=== PATIENT | female | born 2000 | race Caucasian/White ===

== ENCOUNTER 2023-08-05 19:09 | Emergency (ER) | payer BC, SELFPAY ==
[2023-08-05 19:14] VITALS: BP 124/74
[2023-08-05 19:43] LABS: % Basophils 0.9 % (0-2); % Eosinophils 3.6 % (0-6); % Immature Granulocytes 0.2 % (0-0.5); % Lymphocytes 26.1 % (20.5-51.1); % Monocytes 5.2 % (1.7-9.3); Absolute Basophils 0.1 10^3/uL (0-0.2); Absolute Eosinophils 0.2 10^3/uL (0-0.7); Absolute Lymphocytes 1.7 10^3/uL (1.2-3.4); Absolute Monocytes 0.3 10^3/uL (0.1-0.6); Absolute Neutrophils 4.1 10^3/uL (1.4-6.5); Hematocrit 41.9 % (37.0-47.0); Mean Corp Hgb Conc. 35.8 g/dL (33.0-37.0); Mean Corpuscular Hgb 31.6 pg (27.0-31.0); Mean Corpuscular Volume 88.4 fL (81.0-99.0); Mean Platelet Volume 9.6 fL (7.4-10.4); Nucleated Red Blood Cells % 0 %; Platelet Count 316 10^3/uL (130-400); Red Blood Cell Count 4.74 10^6/uL (4.20-5.40); Red Cell Dist. Width 12.1 % (11.5-14.5); White Blood Cell Count 6.4 10^3/uL (4.8-10.8)
[2023-08-05 19:52] LABS: HCG, Serum Qualitative Screen Negative
[2023-08-05 19:58] LABS: ALT (SGPT) 17 U/L (0-35); AST (SGOT) 22 U/L (14-36); Albumin 4.1 g/dl (3.5-5.0); Alkaline Phosphatase 62 U/L (38-126); Blood Urea Nitrogen 10 mg/dl (7-17); Calcium 9.3 mg/dl (8.4-10.2); Carbon Dioxide 22 mmol/L (22-30); Chloride 103 mmol/L (98-107); Glucose 91 mg/dl (70-99); Lipase 57 U/L (23-300); Sodium 137 mmol/L (135-145); Total Bilirubin 0.6 mg/dl (0.2-1.3); eGFR > 60.00
[2023-08-05 23:30] VITALS: BP 134/88; BMI 19.9
--- NOTE | 2023-08-05 23:43 | ED.GENMED ---
History of Present Illness
General
Chief Complaint: Abdominal Pain
Source: patient
Time Seen by Provider: 08/05/23 23:19
Travel History
Have you had any contact with someone who has COVID-19?: No
Do you have any symptoms of coronavirus? Fever > 100 degrees, chills, cough, shortness of breath, sore throat, loss of taste or smell, muscle aches, or headache?: No
History of Present Illness
History of Present Illness:
22-year-old female presents to the emergency room complaining of abdominal pain. Pain is located in the left upper abdomen. Pain woke her from sleep this morning and has been persistent through the day. Patient denies any dysuria, frequency,
urgency. She denies any vaginal discharge. She denies any diarrhea or constipation. Patient did not take any nvcc-gap-snweqab medications for the pain. She denies vomiting but is nauseous.
Past History
Past History
ED Past Medical History: None
ED Past Surgical History: None
Social History
Tobacco: Non-smoker
Alcohol: None
Drug: None
Personal: Single
Living: with family
Employment: Employed
Family History
Family History: Other (Noncontributory)
Phy Exam
Physical Exam
Physical Exam:
General: Awake, Alert, Oriented X3. No acute distress.
Vitals: unremarkable
Head: Atraumatic
Eyes: Pupils equal, EOMI
Throat: Airway intact, no exudates
Neck: Trachea midline
Lungs: Clear and equal b/l
Heart: Regular rate, no murmurs
Abd: Soft, tenderness left upper quadrant, No pulsatile mass
Back: No CVA tenderness to percussion
Neuro: Nonfocal
Skin: Warm, dry, no rash
Extremities: pulses equal b/l, no edema
Course
Orders/Labs/Results
Orders:
Orders
08/05/23 19:26
Complete Blood Count/With Diff Urgent
Comprehensive Metabolic Panel Urgent
HCG, Serum Qualitative Screen Urgent
Comment: ADD ON
Lipase Urgent
08/05/23 19:31
Add On- LAB Urgent
Tests Added?: lipase, hcg qual.
08/05/23 23:41
Urinalysis Reflex To Culture Urgent
Date Specimen was Collected: 08/05/23
Time Specimen was Collected: 23:45
0.9% Sodium Chloride 1000 ml [Nss] 1,000 ml IV BOLUS
Ketorolac [Toradol] 15 mg IV NOW STA
08/06/23 01:12
CT Abd/pel W Iv And Oral Contr Urgent
Comment:
Reason For Exam: left upper pain
Famotidine [Pepcid] 20 mg IV NOW STA
Iohexol [Omnipaque] See Protocol PO NOW STA
Abnormal Lab Results
08/05/23
19:26
MCH 31.6 H pg
(27.0-31.0)
08/05/23 19:26
08/05/23 19:26
Vital Signs
Initial and Last Documented VS:
Initial Vital Signs
Temp Pulse Resp BP Pulse Ox
98.3 F 70 18 124/74 99
08/05/23 19:14 08/05/23 19:14 08/05/23 19:14 08/05/23 19:14 08/05/23 19:14
Last Documented Vital Signs
Temp Pulse Resp BP Pulse Ox
98.3 F 70 18 111/76 97
08/05/23 19:14 08/05/23 19:14 08/05/23 19:14 08/06/23 03:24 08/06/23 03:45
MDM/Problems Addressed
Differential Diagnosis Includes:
gastritis, kidney stone, pyelo, ibs
MDM/Problems Addressed:
Patient presents with left upper quadrant abdominal pain. She has a reassuring abdominal exam. Labs are reassuring. CT with p.o. and IV contrast obtained which shows no clear evidence for the cause of her pain. However her exam is benign and her
labs are reassuring so there is no indication for hospitalization. Patient will follow-up with GI as an outpatient. Recommend vfjl-qyb-ntmlint proton pump inhibitor for now as the most likely diagnosis is gastritis.
*Radiology
Radiology exam reviewed: other ([facility] report)
*Pulse Oximetry
Patient hypoxic: no
*Critical Care Note
Total Time (30-74mins, 75-104mins- exclusive of procedures): Not Applicable
Patient Management
Social determinants of health affecting care: Strong social support
ED Attending Note
-
Portions of this chart may have been created with voice recognition software.� Occasional wrong word or��sound alike� substitutions may have occurred due to the inherent limitations of voice recognition software.
Discharge Plan
Departure
Patient Disposition: Home (Routine Discharge)
Date of Disposition: 08/06/23
Time of Disposition: 04:28
Patient with high blood pressure during this ER visit?: No
Condition: Good
Discharge Problem:
Abdominal pain
Instructions: Abdominal Pain
Prescriptions:
No Action
Control
1 tab PO DAILY
cetirizine [Zyrtec] 10 mg Tablet
10 mg PO DAILY
Referrals:
Sabrina Crowley CRNP [Family Provider] -
Activity Restrictions/Additional Instructions:
CT of abd is normal. Your labs are normal. Pain could be due to irritation of your stomach. I would recommend taking Prilosec OTC for one month.
Interventions
Interventions:
*Risk Screen - Suicide Last Done: 08/05/23 19:14
*General Assessment Last Done: 08/05/23 19:14
*Neglect/Abuse Screening Last Done: 08/06/23 04:45
ED- Fall Risk Assessment Last Done: 08/05/23 23:31
*ED COVID-19 Vaccine History Last Done: 08/05/23 23:31
*Nursing Disposition Last Done: 08/06/23 04:45
GW-Rihtqh-Juiscwxbcu Assessment Last Done: 08/06/23 03:19
Discharge Date and Time
Discharge Date/Time: 08/06/23 04:45
[2023-08-05] MEDS: NSS 1000 IV (23:45)
[2023-08-05] MEDS: TORADOL 15 MG IV (23:49)
[2023-08-06 00:01] VITALS: BP 122/78
[2023-08-06 00:23] LABS: Urine Albumin Negative (Neg - Trace); Urine Bilirubin Negative (Negative); Urine Character Clear (Clear); Urine Color Yellow; Urine Glucose Negative (Negative); Urine Ketone Negative (Negative); Urine Leukocyte Negative (Negative); Urine Nitrite Negative (Negative); Urine Occult Blood Negative (Negative); Urine Specific Gravity 1.015 (<1.030); Urine Urobilinogen Negative (Neg - 1+)
[2023-08-06 00:47] VITALS: BP 110/94
[2023-08-06 01:00] VITALS: BP 117/76
[2023-08-06] MEDS: OMNIPAQUE 50 ML PO (01:23)
[2023-08-06] MEDS: PEPCID 20 MG IV (01:28)
[2023-08-06 02:00] VITALS: BP 117/76
[2023-08-06 03:24] VITALS: BP 111/76
== END 2023-08-06 04:45 | disposition home or self-care (01) ==
LOC: EMR 19:09
PROVIDERS: Emergency Medicine; EMERGENCY PHYSICIAN Emergency Medicine; FAMILY PHYSICIAN Nurse Practitioner Adult Health
DX: R10.9 Unspecified abdominal pain (principal); R10.12 Left upper quadrant pain; R11.0 Nausea
CPT/HCPCS: 99284; 96374; 96375; 96361; 74177; 80053; 81003; 83690; 84703; 85025; Q9967